=== PATIENT | female | born 1965 | race Caucasian/White ===

== ENCOUNTER → 2020-07-10 16:26 | Outpatient (CLI) | payer OTHER, SELFPAY ==
--- NOTE | 2020-07-10 | DI.MG.S_ITS ---
BILATERAL DIGITAL SCREENING MAMMOGRAM 3D/2D WITH CAD: 07/10/2020 CLINICAL: Routine screening. Comparison is made to exams dated: 10/05/2018 mammogram, 09/24/2018 mammogram, and 09/10/2017 mammogram - outside location. The tissue of both breasts is heterogeneously dense. This may lower the sensitivity of mammography. Current study was also evaluated with a Computer Aided Detection (CAD) system. There is an oval low density mass with an obscured and circumscribed margin in the right breast central to the nipple middle depth. There are linear calcifications in the left breast anterior depth superior region seen on the mediolateral oblique view only. No other significant masses or calcifications are seen in either breast. IMPRESSION: INCOMPLETE: NEEDS ADDITIONAL IMAGING EVALUATION The oval low density mass in the right breast central to the nipple middle depth is indeterminate. Mediolateral and spot compression views as well as additional views with possible ultrasound are recommended. The linear calcifications in the left breast anterior depth superior region seen on the mediolateral oblique view only are indeterminate. Mediolateral, spot magnification, and additional views are recommended. This exam was interpreted at Station ID: [id number]. NOTE: For mammograms, a report in lay terms will be sent to the patient. Approximately 15% of breast malignancies will not be visualized mammographically. In the management of a palpable breast mass, a negative mammogram must not discourage biopsy of a clinically suspicious lesion. Electronically Signed By: Micheal jang/tianna:07/11/2020 11:49:37 letter sent: Additional Imaging Needed ACR BI-RADS Category 0: Incomplete 3340F
== END ==
PROVIDERS: Referring Provider Physician Assistant; Visit Provider Physician Assistant
DX: Z12.31 Encounter for screening mammogram for malignant neoplasm of breast (principal)
CPT/HCPCS: 77063; 77067

== ENCOUNTER → 2020-07-16 11:19 | Outpatient (CLI) | payer OTHER, SELFPAY ==
--- NOTE | 2020-07-16 | DI.US.S_ITS ---
ULTRASOUND OF RIGHT BREAST: 07/16/2020 CLINICAL: Patient returns today to evaluate a density in the right breast. Patient returns today to evaluate a focal asymmetry in the right breast. Comparison is made to exams dated: 07/16/2020 mammogram, 07/10/2020 mammogram - [facility], 10/05/2018 mammogram, 10/05/2018 ultrasound, 09/24/2018 mammogram, and 09/10/2017 mammogram - outside location. Color flow and real-time ultrasound of the right breast were performed. Daniels scale images of the real-time examination were reviewed. There is no sonographic correlate for the previously described 0.7 cm asymmetry in the right breast at the central to nipple/ 9 o'clock middle-posterior depth. No other significant abnormalities were seen sonographically in the right breast. IMPRESSION: PROBABLY BENIGN There is no abnormality seen in the right breast to correspond with the mammography finding central to the nipple/upper outer quadrant. This is probably benign. A follow-up right mammogram with possible right ultrasound in 6 months is recommended to demonstrate stability. Findings were conveyed to the patient during today's visit. This exam was interpreted at Station ID: [id number]. Electronically Signed By: Kilo Thakur M.D. aty/:07/16/2020 12:47:35 letter sent: Followup Recommended Ultrasound BI-RADS: 3 Probably benign
--- NOTE | 2020-07-16 | DI.MG.S_ITS ---
BILATERAL DIGITAL DIAGNOSTIC MAMMOGRAM 3D/2D WITH ADDITIONAL VIEWS: 07/16/2020 CLINICAL: Bilateral additional imaging. Comparison is made to exams dated: 07/10/2020 mammogram - [facility], 10/05/2018 mammogram, and 09/24/2018 mammogram - outside location. The tissue of both breasts is heterogeneously dense. This may lower the sensitivity of mammography. Redemonstration of the previously described 0.7 cm oval low density mass with an obscured and circumscribed margin in the right breast central to the nipple middle depth. This is seen in additional views. The previously described linear calcifications in the left breast anterior depth superior region seen on the mediolateral oblique view only are no longer seen and likely represented artifact. No other significant masses or calcifications are seen in either breast. IMPRESSION: INCOMPLETE: NEEDS ADDITIONAL IMAGING EVALUATION The 0.7 cm oval low density mass in the right breast central to the nipple middle depth is indeterminate. An ultrasound is recommended for further evaluation and is scheduled to immediately follow this study. Left breast is without mammographic evidence for malignancy. This exam was interpreted at Station ID: [id number]. NOTE: For mammograms, a report in lay terms will be sent to the patient. Approximately 15% of breast malignancies will not be visualized mammographically. In the management of a palpable breast mass, a negative mammogram must not discourage biopsy of a clinically suspicious lesion. Electronically Signed By: Kilo Thakur M.D. aty/:07/16/2020 12:28:13 ACR BI-RADS Category 0: Incomplete 3340F
== END ==
PROVIDERS: PCP Physician Assistant; Referring Provider Physician Assistant; Visit Provider Physician Assistant
DX: R92.8 Other abnormal and inconclusive findings on diagnostic imaging of breast (principal); N64.89 Other specified disorders of breast
CPT/HCPCS: 76642; 77066; G0279